=== PATIENT | female | born 1950 | race Caucasian/White ===

== ENCOUNTER 2020-04-11 09:04 | Outpatient (CLI) | payer MEDICARE, OTHER ==
[2020-04-11] MEDS ORDERED: SODIUM BICARBONATE 4.2%, 5ML ONE (09:45)
[2020-04-11] MEDS ORDERED: LIDOCAINE 1%-EPI 1:100K, 20ML ONE (09:45)
[2020-04-11] MEDS ORDERED: LIDOCAINE 1%, 20ML ONE (09:45)
== END 2020-04-11 23:59 | disposition home or self-care (01) ==
LOC: CFH 09:04
PROVIDERS: ATTEND Surgery
DX: D48.61 Neoplasm of uncertain behavior of right breast (principal); C50.411 Malignant neoplasm of upper-outer quadrant of right female breast; Z17.1 Estrogen receptor negative status [ER-]
CPT/HCPCS: 19083; 77065; 88305; 88360; 88361; J3490; 19285

== ENCOUNTER → 2020-04-29 | Outpatient (CLI) | payer MEDICARE, OTHER ==
[~2020-04-29] MED LIST: GADOTERATE 10 MMOL/20 ML VIAL ONE
== END | disposition home or self-care (01) ==
LOC: CFH 12:14
PROVIDERS: ATTEND Surgery
DX: C50.411 Malignant neoplasm of upper-outer quadrant of right female breast (principal); N63.11 Unspecified lump in the right breast, upper outer quadrant
CPT/HCPCS: 77049; A9575; C8937; C8908

== ENCOUNTER 2020-05-06 16:00 | Outpatient (CLI) | payer MEDICARE, OTHER ==
[2020-05-06] MEDS ORDERED: BUPR150T73 PO (16:35)
[2020-05-06] MEDS ORDERED: SERT50TA28 PO (16:35)
[2020-05-06] MEDS ORDERED: ACET1TAB52 PO (16:35)
[2020-05-06] MEDS ORDERED: UMEC1DIS INH (16:35)
[2020-05-06] MEDS ORDERED: METO25TA35 PO (16:35)
[2020-05-06] MEDS ORDERED: BENA1TAB11 PO (16:35)
== END 2020-05-06 23:59 | disposition home or self-care (01) ==
LOC: STAR 16:00
PROVIDERS: ATTEND Surgery
DX: Z01.812 Encounter for preprocedural laboratory examination (principal); Z20.828 Contact with and (suspected) exposure to other viral communicable diseases; C50.411 Malignant neoplasm of upper-outer quadrant of right female breast
CPT/HCPCS: 36415; 80053; 87635

== ENCOUNTER 2020-05-09 05:15 | Day surgery (SDC) | payer MEDICARE, OTHER ==
[2020-05-06 17:22] LABS: ALBUMIN 3.8 g/dL (3.4-5.0); ANION GAP 8 mmol/L (5-15); CALCIUM 9.6 mg/dL (8.5-10.1); CHLORIDE 108 mmol/L (98-107)
[2020-05-06 17:26] LABS: ALANINE AMINOTRANSFERASE 22 U/L (12-78); ALKALINE PHOSPHATASE 83 U/L (45-117); BILIRUBIN,TOTAL 0.5 mg/dL (0.2-1.0); CREATININE 0.94 mg/dL (0.55-1.02); TOTAL PROTEIN 7.5 g/dL (6.4-8.2)
[~2020-05-09] VITALS: Ht 162.6 cm; Wt 81.1 kg
[~2020-05-09 05:15] MED LIST changes: +ACET1TAB52 PO; +BENA1TAB11 PO; +BUPR150T73 PO; -GADOTERATE 10 MMOL/20 ML VIAL ONE; +METO25TA35 PO; +SERT50TA28 PO; +UMEC1DIS INH
[2020-05-09] MEDS ORDERED: CHLORHEXIDINE 15 ML UDC ONE (05:42)
[2020-05-09] MEDS ORDERED: LACTATED RINGERS 1,000 ML IV SCH (06:05)
[2020-05-09] MEDS ORDERED: LIDOCAINE/PF 1%, 30ML ONE (06:28)
[2020-05-09] MEDS ORDERED: BUPIVACAINE/PF 0.5% ONE (06:28)
[2020-05-09] MEDS ORDERED: HEPARIN 1,000 UNITS/ML, 10ML ONE (06:28)
[2020-05-09] MEDS ORDERED: EPINEPHRINE 1 MG/ML, 1ML ONE (06:29)
[2020-05-09] MEDS ORDERED: BUPIVACAINE/PF 0.25% ONE (06:29)
[2020-05-09] MEDS ORDERED: CHLORHEXIDINE 15 ML UDC MM ONE (06:30)
[2020-05-09] MEDS ORDERED: FENTANYL PF 100 MCG/2ML ONE (06:53)
[2020-05-09] MEDS ORDERED: ROCURONIUM 10MG/ML,5ML ONE (07:10)
[2020-05-09] MEDS ORDERED: ALBUTEROL SULFATE 200 PUFFS/8.5 GR INH ONE (07:10)
[2020-05-09] MEDS ORDERED: HEPARIN 1,000 UNITS/ML, 10ML IV ONE (07:33)
[2020-05-09] MEDS ORDERED: BUPIVACAINE/PF-EPI 0.5% 1:200K INFIL ONE (07:33)
[2020-05-09] MEDS ORDERED: SUGAMMADEX 200 MG/2 ML IVPush ONE (07:47)
[2020-05-09] MEDS ORDERED: NEOSTIGMINE 1 MG/ML, 10ML ONE (07:47)
[2020-05-09] MEDS ORDERED: DEXAMETHASONE 4 MG/ML, 1ML ONE (07:47)
[2020-05-09] MEDS ORDERED: PROPOFOL 10 MG/ML, 20ML ONE (07:47)
[2020-05-09] MEDS ORDERED: ONDANSETRON 2MG/ML, 2ML ONE (07:47)
[2020-05-09] MEDS ORDERED: GLYCOPYRROLATE 0.2MG/1ML, 5ML ONE (07:47)
[2020-05-09] MEDS ORDERED: SUCCINYLCHOLINE 20 MG/ML, 10ML ONE (07:47)
[2020-05-09] MEDS ORDERED: CEFAZOLIN 1,000 MG ONE (07:47)
[2020-05-09] MEDS ORDERED: HYDROmorphone 2 MG/ML, 1ML IVPush PRN (08:00)
[2020-05-09] MEDS ORDERED: ALBUTEROL SULFATE 2.5 MG/3 ML NPPB PRN (08:00)
[2020-05-09] MEDS ORDERED: OXYcodone 5 MG/5 ML ORAL.SOL UDC PO PRN (08:00)
[2020-05-09] MEDS ORDERED: LABETALOL 5MG/ML, 20ML IV PRN (08:00)
[2020-05-09] MEDS ORDERED: MEPERIDINE/PF 25MG/0.5ML IVPush PRN (08:00)
[2020-05-09] MEDS ORDERED: ACETAMINOPHEN 325 MG TABLET PO PRN (08:00)
[2020-05-09] MEDS ORDERED: KETOROLAC 30 MG/1 ML IV PRN (08:00)
[2020-05-09] MEDS ORDERED: hydrALAzine 20 MG/ML, 1ML IV PRN (08:00)
[2020-05-09] MEDS ORDERED: FENTANYL PF 100 MCG/2ML IV PRN (08:00)
[2020-05-09] MEDS ORDERED: DIAZEPAM 5 MG/ML, 2ML IVPush PRN (08:00)
[2020-05-09] MEDS ORDERED: PROMETHAZINE 25 MG/ML, 1ML IV PRN (08:00)
== END 2020-05-09 10:05 | disposition home or self-care (01) ==
LOC: OUT 05:15
PROVIDERS: ATTEND Surgery
DX: C50.411 Malignant neoplasm of upper-outer quadrant of right female breast (principal); I10 Essential (primary) hypertension; J44.9 Chronic obstructive pulmonary disease, unspecified; F17.210 Nicotine dependence, cigarettes, uncomplicated; Z17.1 Estrogen receptor negative status [ER-]; Z79.899 Other long term (current) drug therapy; Z88.2 Allergy status to sulfonamides; Z99.81 Dependence on supplemental oxygen
CPT/HCPCS: 36561; 71045; 77001; 93005; C1788; J0171; J0330; J0690; J1100; J1644; J2405; J2704; J2710; J3010; J7120; 36415; 80053; 87635; J3490

== ENCOUNTER 2020-07-02 14:19 | Outpatient (CLI) | payer MEDICARE, OTHER ==
[2020-07-02] MEDS ORDERED: Tylenol PM PO (15:37)
[2020-07-02] MEDS ORDERED: FAMO10TA31 PO (15:37)
== END 2020-07-02 23:59 | disposition home or self-care (01) ==
LOC: STAR 14:19
PROVIDERS: ATTEND Surgery
DX: Z02.9 Encounter for administrative examinations, unspecified (principal)

== ENCOUNTER 2020-07-25 07:53 | Day surgery (SDC) | payer MEDICARE, OTHER ==
[~2020-07-25] VITALS: Ht 165.1 cm; Wt 78.0 kg
[~2020-07-25 07:53] MED LIST changes: +BUPIVACAINE/PF 0.25% ONE; +EPINEPHRINE 1 MG/ML, 1ML ONE; +FAMO10TA31 PO; +Tylenol PM PO
[2020-07-25 09:10] VITALS: BP 132/74
[2020-07-25] MEDS ORDERED: CHLORHEXIDINE 15 ML UDC ONE (09:28)
[2020-07-25] MEDS ORDERED: LACTATED RINGERS 1,000 ML IV SCH (09:30)
[2020-07-25] MEDS ORDERED: CHLORHEXIDINE 15 ML UDC MM ONE (09:30)
[2020-07-25] MEDS ORDERED: FENTANYL PF 250 MCG/5ML ONE (10:48)
[2020-07-25] MEDS ORDERED: MIDAZOLAM 1 MG/ML, 2ML ONE (10:48)
[2020-07-25] MEDS ORDERED: PROPOFOL 50 ML ONE (10:48)
[2020-07-25] MEDS ORDERED: DEXAMETHASONE 4 MG/ML, 1ML ONE (11:05)
[2020-07-25] MEDS ORDERED: ONDANSETRON 2MG/ML, 2ML ONE (11:05)
[2020-07-25] MEDS ORDERED: FENTANYL PF 100 MCG/2ML IV PRN (12:00)
[2020-07-25] MEDS ORDERED: ACETAMINOPHEN 325 MG TABLET PO PRN (12:00)
[2020-07-25] MEDS ORDERED: OXYcodone 5 MG/5 ML ORAL.SOL UDC PO PRN (12:00)
[2020-07-25] MEDS ORDERED: ONDANSETRON 2MG/ML, 2ML IVPush PRN (12:00)
[2020-07-25] MEDS ORDERED: DIAZEPAM 5 MG/ML, 2ML IVPush PRN (12:00)
[2020-07-25] MEDS ORDERED: HYDROmorphone 1 MG/ML, 1ML INJ IVPush PRN (12:00)
[2020-07-25] MEDS ORDERED: DIPHENHYDRAMINE 50 MG/ML, 1ML IVPush PRN (12:00)
[2020-07-25] MEDS ORDERED: PROMETHAZINE 25 MG/ML, 1ML IVPush PRN (12:00)
[2020-07-25] MEDS ORDERED: LABETALOL 5MG/ML, 20ML IV PRN (12:00)
[2020-07-25] MEDS ORDERED: EPHEDRINE 50 MG/ML, 1ML IVPush PRN (12:00)
[2020-07-25] MEDS ORDERED: EPHEDRINE 50 MG/ML, 1ML IM PRN (12:00)
[2020-07-25] MEDS ORDERED: MEPERIDINE/PF 25MG/0.5ML IVPush PRN (12:00)
[2020-07-25] MEDS ORDERED: ALBUTEROL HFA 90 MCG/SPRAY ONE (15:23)
[2020-07-25] MEDS ORDERED: ALBUTEROL HFA 90 MCG/SPRAY INH PRN (15:30)
== END 2020-07-25 17:25 | disposition home or self-care (01) ==
LOC: OUT 07:53
PROVIDERS: ATTEND Surgery
DX: C50.411 Malignant neoplasm of upper-outer quadrant of right female breast (principal); N60.31 Fibrosclerosis of right breast; J44.9 Chronic obstructive pulmonary disease, unspecified; I10 Essential (primary) hypertension; F17.210 Nicotine dependence, cigarettes, uncomplicated; Z17.1 Estrogen receptor negative status [ER-]; Z20.828 Contact with and (suspected) exposure to other viral communicable diseases; Z79.899 Other long term (current) drug therapy; Z88.2 Allergy status to sulfonamides; Z99.81 Dependence on supplemental oxygen
CPT/HCPCS: 19301; 19316; 38525; 38792; 76098; 87635; 88307; 88329; 88333; A9541; J0171; J1100; J2250; J2405; J2704; J3010; J7120

== ENCOUNTER 2020-08-22 05:59 | Day surgery (SDC) | payer MEDICARE, OTHER ==
[~2020-08-22] VITALS: Ht 165.1 cm; Wt 78.9 kg
[~2020-08-22 05:59] MED LIST changes: -BUPIVACAINE/PF 0.25% ONE; -EPINEPHRINE 1 MG/ML, 1ML ONE
[2020-08-22] MEDS ORDERED: CEPH750C9 PO (06:30)
[2020-08-22] MEDS ORDERED: BUPIVACAINE/PF 0.5% ONE (06:56)
[2020-08-22] MEDS ORDERED: EPINEPHRINE 1 MG/ML, 1ML ONE (06:57)
[2020-08-22] MEDS ORDERED: CHLORHEXIDINE 15 ML UDC MM ONE (07:00)
[2020-08-22] MEDS ORDERED: LACTATED RINGERS 1,000 ML IV SCH (07:00)
[2020-08-22 07:01] VITALS: BP 148/73
[2020-08-22 07:27] LABS: ALANINE AMINOTRANSFERASE 23 U/L (12-78); ALBUMIN 3.3 g/dL (3.4-5.0); ANION GAP 3 mmol/L (5-15); CHLORIDE 112 mmol/L (98-107); CREATININE 0.83 mg/dL (0.55-1.02)
[2020-08-22 07:29] LABS: ALKALINE PHOSPHATASE 97 U/L (45-117); BILIRUBIN,TOTAL 0.5 mg/dL (0.2-1.0); TOTAL PROTEIN 6.5 g/dL (6.4-8.2)
[2020-08-22] MEDS ORDERED: MIDAZOLAM 1 MG/ML, 2ML ONE (07:31)
[2020-08-22] MEDS ORDERED: ONDANSETRON 2MG/ML, 2ML ONE (07:31)
[2020-08-22] MEDS ORDERED: FENTANYL PF 100 MCG/2ML ONE (07:31)
[2020-08-22] MEDS ORDERED: PROPOFOL 10 MG/ML, 20ML ONE (07:31)
[2020-08-22] MEDS ORDERED: LIDOCAINE-MPF 2% ,5ML ONE (07:31)
[2020-08-22] MEDS ORDERED: AMOXICILLIN PO (07:37)
[2020-08-22] MEDS ORDERED: DOXYCYCLINE PO (07:37)
[2020-08-22] MEDS ORDERED: ACETAMINOPHEN 500 MG TABLET ONE (07:45)
[2020-08-22] MEDS ORDERED: ACETAMINOPHEN 500 MG TABLET PO ONE (08:00)
[2020-08-22] MEDS ORDERED: CEFAZOLIN 1,000 MG ONE ×2 (08:15)
[2020-08-22] MEDS ORDERED: OXYcodone 5 MG/5 ML ORAL.SOL UDC PO PRN (08:30)
[2020-08-22] MEDS ORDERED: LABETALOL 5MG/ML, 20ML IV PRN (08:30)
[2020-08-22] MEDS ORDERED: ONDANSETRON 2MG/ML, 2ML IVPush PRN (08:30)
[2020-08-22] MEDS ORDERED: hydrALAzine 20 MG/ML, 1ML IV PRN (08:30)
[2020-08-22] MEDS ORDERED: PROMETHAZINE 25 MG/ML, 1ML IVPush PRN (08:30)
[2020-08-22] MEDS ORDERED: FENTANYL PF 100 MCG/2ML IV PRN (08:30)
[2020-08-22] MEDS ORDERED: DIAZEPAM 5 MG/ML, 2ML IVPush PRN (08:30)
[2020-08-22] MEDS ORDERED: HYDROmorphone 1 MG/ML, 1ML INJ IVPush PRN (08:30)
[2020-08-22] MEDS ORDERED: DIPHENHYDRAMINE 50 MG/ML, 1ML IVPush PRN (08:30)
[2020-08-22] MEDS ORDERED: MEPERIDINE/PF 25MG/0.5ML IVPush PRN (08:30)
[2020-08-22] MEDS ORDERED: HYDR-3240 PO (08:37)
[2020-08-22] MEDS ORDERED: ONDA4TAB7 PO (08:37)
== END 2020-08-22 13:10 | disposition home or self-care (01) ==
LOC: OUT 05:59
PROVIDERS: ATTEND Surgery
DX: N61.1 Abscess of the breast and nipple (principal); C50.411 Malignant neoplasm of upper-outer quadrant of right female breast; I10 Essential (primary) hypertension; F17.210 Nicotine dependence, cigarettes, uncomplicated; Z88.2 Allergy status to sulfonamides; J44.9 Chronic obstructive pulmonary disease, unspecified; Z20.828 Contact with and (suspected) exposure to other viral communicable diseases; Z79.2 Long term (current) use of antibiotics; Z79.899 Other long term (current) drug therapy; Z88.5 Allergy status to narcotic agent; Z72.89 Other problems related to lifestyle; Z98.890 Other specified postprocedural states
CPT/HCPCS: 19020; 36415; 80053; 93005; J0171; J0690; J2250; J2405; J2704; J3010; J7120; U0003

== ENCOUNTER 2020-09-02 08:11 | Outpatient (CLI) | payer MEDICARE, OTHER ==
[~2020-09-02 08:11] MED LIST changes: +AMOXICILLIN PO; +CEPH750C9 PO; +DOXYCYCLINE PO; +HYDR-1067 PO; +ONDA4TAB7 PO
== END 2020-09-02 23:59 | disposition home or self-care (01) ==
LOC: ROC 08:11
PROVIDERS: ATTEND Radiology Radiation Oncology
DX: C50.111 Malignant neoplasm of central portion of right female breast (principal); C50.411 Malignant neoplasm of upper-outer quadrant of right female breast; J44.9 Chronic obstructive pulmonary disease, unspecified; I10 Essential (primary) hypertension; F17.210 Nicotine dependence, cigarettes, uncomplicated; Z17.1 Estrogen receptor negative status [ER-]; Z79.899 Other long term (current) drug therapy; Z99.81 Dependence on supplemental oxygen
CPT/HCPCS: G0463

== ENCOUNTER 2020-11-21 09:53 | Outpatient (CLI) | payer MEDICARE, OTHER ==
[~2020-11-21 09:53] MED LIST changes: -HYDR-1067 PO; +HYDR-2214 PO
== END 2020-11-21 23:59 | disposition home or self-care (01) ==
LOC: ROC 09:53
PROVIDERS: ATTEND Radiology Radiation Oncology
DX: C50.111 Malignant neoplasm of central portion of right female breast (principal); J44.9 Chronic obstructive pulmonary disease, unspecified; I10 Essential (primary) hypertension; Z17.1 Estrogen receptor negative status [ER-]; Z87.891 Personal history of nicotine dependence; Z99.81 Dependence on supplemental oxygen; Z79.899 Other long term (current) drug therapy; Z79.2 Long term (current) use of antibiotics
CPT/HCPCS: G0463

== ENCOUNTER 2021-02-14 08:57 | Outpatient (CLI) | payer MEDICARE, OTHER | END 2021-02-14 23:59 | disposition home or self-care (01) | LOC: ROC 08:57 | PROVIDERS: ATTEND Radiology Radiation Oncology | DX: Z08 Encounter for follow-up examination after completed treatment for malignant neoplasm (principal); Z85.3 Personal history of malignant neoplasm of breast | CPT/HCPCS: G0463 ==